=== PATIENT | female | born 1985 | race African-American/Black ===

== ENCOUNTER 2016-12-01 20:42 | Emergency (ER) | payer OTHER ==
[~2016-12-01] VITALS: Ht 157.5 cm; Wt 65.8 kg
--- NOTE | 2016-12-01 20:55 | NUR ---
PT BIB EMT PARTNER FOR SYNCOPAL EPIDSODE, PT HIT HEAD ON DOOR. PER PARTNER SAID PT WAS ASSISTED TO FLOOR. PT AOX4 RR EVEN AND UNLABORED. NO SOB NOTED. NAD NOTED. NO NVD AT THIS TIME. PT GOWNED AND PLACED ON MONITOR WAITING FOR MD RALPH.
[2016-12-01] MEDS ORDERED: IV NS 0.9% 500 ML IV ONE (20:59)
[2016-12-01] MEDS ORDERED: IV SET PRIMARY 1 EA INFUS.SET MC ONE (20:59)
[2016-12-01] MEDS ORDERED: IV NS 0.9% 500 ML BAG IV ONE (21:00)
--- NOTE | 2016-12-01 21:05 | NUR ---
XRAY AT BEDSIDE
[2016-12-01 21:10] LABS: BASOPHILS # (AUTO) 0.1 /CMM (0.0-0.2); BASOPHILS % (AUTO) 1.2 % (0.0-2.0); EOSINOPHILS # (AUTO) 0.1 /CMM (0.0-0.7); EOSINOPHILS % (AUTO) 1.2 % (0.0-6.0); HEMATOCRIT 36 % (33-45); HEMOGLOBIN 11.8 g/dL (11.5-14.8); LYMPHOCYTES # (AUTO) 1.6 /CMM (0.8-4.8); LYMPHOCYTES % (AUTO) 17.2 % (20.0-44.0); MEAN CORPUSCULAR HEMOGLOBIN 24 PG (26.0-33.0); MEAN CORPUSCULAR HGB CONC 33 g/dl (31.0-36.0); MEAN CORPUSCULAR VOLUME 74 fL (82-100); MONOCYTES # (AUTO) 0.7 /CMM (0.1-1.30); MONOCYTES % (AUTO) 7.5 % (2.0-12.0); NEUTROPHILS # (AUTO) 7.1 /CMM (1.8-8.9); NEUTROPHILS % (AUTO) 72.9 % (43.0-81.0); PLATELET COUNT (AUTO) 275 /CMM (150-450); RDW COEFFICIENT OF VARIATION 17.5 (11.5-15.0); RED BLOOD CELL COUNT(AUTO) 4.92 MIL/uL (4.0-5.2); WHITE BLOOD COUNT (AUTO) 9.6 K/uL (4.3-11.0)
--- NOTE | 2016-12-01 21:23 | NUR ---
URINE COLLECTED. CALLED LAB FOR [employer] PRODUCER.
--- NOTE | 2016-12-01 21:58 | NUR ---
IV removed. Catheter intact and site benign. Pressure and 4x4 applied to site. No bleeding noted. Patient discharged to home in stable condition. Written and verbal after care instructions given. Patient verbalizes understanding of instruction. ambulatory with a steady gait
[2016-12-01 21:59] VITALS: BP 128/74
== END 2016-12-01 21:59 | disposition home or self-care (01) ==
LOC: ER 20:46
DX: R55 Syncope and collapse (principal); K50.90 Crohn's disease, unspecified, without complications; D64.9 Anemia, unspecified; I95.9 Hypotension, unspecified
CPT/HCPCS: 36415; 71010; 82962; 84703; 85025; 93005; 99285; A4606; J7040; Z7610